=== PATIENT | male | born 1970 | race Caucasian/White ===

== ENCOUNTER → 2017-11-13 | Outpatient (CLI) | payer OTHER ==
--- NOTE | 2017-11-13 17:43 | XR ---
PROCEDURE: XR tibia fibula LT, 4 views DATE AND TIME: 11/13/2017 5:38 PM REFERRING PHYSICIAN: Damon Craven DO CLINICAL INDICATION: PHH, left lower leg pain M79.669 TECHNIQUE: Department protocol. COMPARISON: None FINDINGS: Imaging was obtained from the knee through the ankle. The bones and joints and soft tissues are unremarkable. IMPRESSION: NEGATIVE EXAMINATION.
== END | disposition home or self-care (01) ==
LOC: RADXRMAIN 17:12
PROVIDERS: ATTEND Emergency Medicine
DX: M79.662 Pain in left lower leg (principal)

== ENCOUNTER → 2017-11-21 | Outpatient (CLI) | payer SELFPAY ==
--- NOTE | 2017-11-21 15:14 | US ---
EXAMINATION TYPE: US venous doppler duplex LE DATE OF EXAM: 11/21/2017 2:56 PM COMPARISON: NONE CLINICAL HISTORY: M60.869 Other myositis, unspecified lower leg. Left leg pain after lifting heavy ba rrel SIDE PERFORMED: Left TECHNIQUE: The lower extremity deep venous system is examined utilizing real time linear array sonog rocio with graded compression, doppler sonography and color-flow sonography. VESSELS IMAGED: External Iliac Vein (EIV) Common Femoral Vein Deep Femoral Vein Greater Saphenous Vein * Femoral Vein Popliteal Vein Small Saphenous Vein * Proximal Calf Veins (* superficial vessels) Left Leg: Negative for DVT In the area of the patient's pain in the left calf, there is an anechoic area measuring 2.6 x 0.5 x 1 .7 cm . No color flow is evident at this time. Findings could be related to small hematoma. IMPRESSION: 1. Left lower extremity ultrasound negative for deep venous thrombosis. 2. Within the left calf area at the area of pain there is a 2.6 x 0.5 x 1.7 cm hypoechoic area which could be a small hematoma within the subcutaneous tissue..
== END | disposition home or self-care (01) ==
LOC: RADUSWWP 14:16
PROVIDERS: ATTEND Emergency Medicine
DX: M79.662 Pain in left lower leg (principal)